=== PATIENT | male | born 1950 ===

== ENCOUNTER 2021-05-04 13:32 | Inpatient (IN) | payer MEDICARE, OTHER ==
[2021-05-04] MEDS ORDERED: Sodium Chloride 0.9% 10 ML Syringe FLUSH PRN ×2 (13:44→16:01)
--- NOTE | 2021-05-04 14:05 | EDM.PDOC ---
ED HPI GENERAL MEDICAL PROBLEM - General Chief Complaint: Cardiovascular Problem Stated Complaint: ABNORMAL EKG SENT BY RUPERT Time Seen by Provider: 05/04/21 13:44 Source of Information: Reports: Patient, Family (Ellyn, daughter was present on phone for history), RN Notes Reviewed History Limitations: Reports: No Limitations - History of Present Illness INITIAL COMMENTS - FREE TEXT/NARRATIVE: Patient is a 70-year-old male who presents to the ER for evaluation of a few different issues. Patient was evaluated earlier this morning at the [facility] by Kena Nash, and was found to have an irregular EKG, this revealed atrial flutter with a predominant 4-1 AV block. Patient states that he has been having some issues with shortness of breath, on exertion for the last 2 or 3 weeks. He notes that he has a lot of sinus drainage, and has been having a cough but nothing that is productive. Patient is not complaining of any chest pain or pressure, or shortness of breath at rest. Patient is complaining of increased fatigue with any sort of activity at all. Notes that his blood pressure a while back, has been in the 200s systolically, and blood pressure at the ER today has been 180 systolically. O2 sats are on the low side of normal at about 93% on room air. He is afebrile at 97.4 F, respiratory rate 18, and peripheral pulse at around 98 bpm. Patient states that he is a [id number] smoker at least, and has not had any cigarettes today. He does drink coffee as well. States that he has been on heart medications many years ago, but he did not think they were helping, and then they just got more expensive so he quit taking them. He is not had a primary care provider in 7 years and his last care provider was at the [facility]. - Related Data Allergies Allergy/AdvReac Type Severity Reaction Status Date / Time No Known Allergies Allergy Verified 05/04/21 13:44 Past Medical History HEENT History: Reports: Other (See Below) Other HEENT History: tunnel vision, night blindness Cardiovascular History: Reports: Heart Murmur (? aortic stenosis), SOB on Exertion Social & Family History - Tobacco Use Tobacco Use Status *Q: Current Every Day Tobacco User Tobacco Use Within Last Twelve Months: Cigarettes Years of Tobacco use: 50 Packs/Tins Daily: 1 Packs/Tins Daily Comment: last use 05/03/21 Second Hand Smoke Exposure: No - Caffeine Use Caffeine Use: Reports: Coffee - Recreational Drug Use Recreational Drug Use: No ED ROS GENERAL - Review of Systems Review Of Systems: Comprehensive ROS is negative, except as noted in HPI. ED EXAM, GENERAL - Physical Exam Exam: See Below Exam Limited By: No Limitations General Appearance: Alert, WD/WN, No Apparent Distress Respiratory/Chest: No Respiratory Distress, Lungs Clear, Normal Breath Sounds, No Accessory Muscle Use, Chest Non-Tender Cardiovascular: Normal Peripheral Pulses, Regular Rate, Rhythm, No Edema, Systolic Murmur (poss aortic stenosis type murmur) Peripheral Pulses: 2+: Radial (L), Radial (R) Extremities: Normal Inspection, Normal Capillary Refill Neurological: Alert, Oriented, Normal Cognition, No Motor/Sensory Deficits Psychiatric: Normal Affect, Normal Mood Skin Exam: Warm, Dry, Intact, Normal Color, No Rash, Other (several raised discolored areas; large one on left upper chest and 2 areas on back towards midline.) #1 Interpretation EKG Date: 05/04/21 Time: 13:44 Rhythm: A-Flutter (with 4:1 AV block) Rate (Beats/Min): 81 [place]: Normal P-Wave: Present QRS: Normal ST-T: Normal QT: Prolonged (QTc 524) Comparison: NA - No Prior EKG EKG Interpretation Comments: No obvious ischemia or acute ST changes noted, reviewed by myself and Dr. Titus. There is some left ventricular hypertrophy noted on the EKG as well. Course - Vital Signs Last Recorded V/S: Last Vital Signs Temp 97.4 F 05/04/21 13:42 Pulse 98 05/04/21 13:42 Resp 18 05/04/21 13:42 BP 186/80 H 05/04/21 13:42 Pulse Ox 93 L 05/04/21 13:42 - Orders/Labs/Meds Orders: Active Orders 24 hr Category Date Time Status EKG Documentation Completion [RC] STAT Care 05/04/21 13:44 Ordered Peripheral IV Care [RC] . DIRECTED Care 05/04/21 13:44 Ordered COVID-19/FLU A+B [MOLEC] Stat Lab 05/04/21 14:20 Ordered Sodium Chloride 0.9% [Saline Flush] Med 05/04/21 13:44 Ordered 10 ml FLUSH ASDIRECTED PRN Peripheral IV Insertion Adult [OM.PC] Stat Oth 05/04/21 13:44 Ordered Medication Orders Sodium Chloride (Sodium Chloride 0.9% 10 Ml Syringe) 10 ml FLUSH ASDIRECTED PRN PRN Reason: Keep Vein Open Last Admin: 05/04/21 13:43 Dose: 10 ml Documented by: CAROLINA Labs: Laboratory Tests 05/04/21 05/04/21 05/04/21 Range/Units 13:43 13:43 13:43 WBC 7.71 (4.23-9.07) K/mm3 RBC 4.88 (4.63-6.08) M/mm3 Hgb 15.2 (13.7-17.5) gm/dl Hct 45.7 (40.1-51.0) % MCV 93.6 H (79.0-92.2) fl MCH 31.1 (25.7-32.2) pg MCHC 33.3 (32.2-35.5) g/dl RDW Std Deviation 46.0 H (35.1-43.9) fL Plt Count 246 (163-337) K/mm3 MPV 9.7 (9.4-12.3) fl Neut % (Auto) 65.9 (34.0-67.9) % Lymph % (Auto) 19.1 L (21.8-53.1) % [place] % (Auto) 11.7 (5.3-12.2) % Eos % (Auto) 2.7 (0.8-7.0) Baso % (Auto) 0.5 (0.1-1.2) % Neut # (Auto) 5.08 (1.78-5.38) K/mm3 Lymph # (Auto) 1.47 (1.32-3.57) K/mm3 [place] # (Auto) 0.90 H (0.30-0.82) K/mm3 Eos # (Auto) 0.21 (0.04-0.54) K/mm3 Baso # (Auto) 0.04 (0.01-0.08) K/mm3 PT 11.5 (9.7-12.0) SECONDS INR 1.08 APTT 28.0 (21.7-31.4) SECONDS D-Dimer, Quantitative 0.85 H (0.19-0.50) mg/L Sodium 145 (136-145) mEq/L Potassium 3.8 (3.5-5.1) mEq/L Chloride 109 H (98-107) mEq/L Carbon Dioxide 25 (21-32) mEq/L Anion Gap 14.8 (5-15) BUN 21 H (7-18) mg/dL Creatinine 1.9 H (0.7-1.3) mg/dL Est Cr Clr Drug Dosing 39.63 mL/min Estimated GFR (MDRD) 35 (>60) mL/min BUN/Creatinine Ratio 11.1 L (14-18) Glucose 142 H (70-99) mg/dL Calcium 8.9 (8.5-10.1) mg/dL Magnesium 2.2 (1.8-2.4) mg/dL Total Bilirubin 0.7 (0.2-1.0) mg/dL AST 35 (15-37) U/L ALT 116 H (16-63) U/L Alkaline Phosphatase 85 (46-116) U/L Troponin I 0.062 H* (0.00-0.056) ng/mL NT-Pro-B Natriuret Pep (0-125) pg/mL Total Protein 7.3 (6.4-8.2) g/dl Albumin 3.6 (3.4-5.0) g/dl Globulin 3.7 gm/dL Albumin/Globulin Ratio 1.0 (1-2) 05/04/21 Range/Units 13:43 WBC (4.23-9.07) K/mm3 RBC (4.63-6.08) M/mm3 Hgb (13.7-17.5) gm/dl Hct (40.1-51.0) % MCV (79.0-92.2) fl MCH (25.7-32.2) pg MCHC (32.2-35.5) g/dl RDW Std Deviation (35.1-43.9) fL Plt Count (163-337) K/mm3 MPV (9.4-12.3) fl Neut % (Auto) (34.0-67.9) % Lymph % (Auto) (21.8-53.1) % [place] % (Auto) (5.3-12.2) % Eos % (Auto) (0.8-7.0) Baso % (Auto) (0.1-1.2) % Neut # (Auto) (1.78-5.38) K/mm3 Lymph # (Auto) (1.32-3.57) K/mm3 [place] # (Auto) (0.30-0.82) K/mm3 Eos # (Auto) (0.04-0.54) K/mm3 Baso # (Auto) (0.01-0.08) K/mm3 PT (9.7-12.0) SECONDS INR APTT (21.7-31.4) SECONDS D-Dimer, Quantitative (0.19-0.50) mg/L Sodium (136-145) mEq/L Potassium (3.5-5.1) mEq/L Chloride (98-107) mEq/L Carbon Dioxide (21-32) mEq/L Anion Gap (5-15) BUN (7-18) mg/dL Creatinine (0.7-1.3) mg/dL Est Cr Clr Drug Dosing mL/min Estimated GFR (MDRD) (>60) mL/min BUN/Creatinine Ratio (14-18) Glucose (70-99) mg/dL Calcium (8.5-10.1) mg/dL Magnesium (1.8-2.4) mg/dL Total Bilirubin (0.2-1.0) mg/dL AST (15-37) U/L ALT (16-63) U/L Alkaline Phosphatase (46-116) U/L Troponin I (0.00-0.056) ng/mL NT-Pro-B Natriuret Pep 00051 H (0-125) pg/mL Total Protein (6.4-8.2) g/dl Albumin (3.4-5.0) g/dl Globulin gm/dL Albumin/Globulin Ratio (1-2) Meds: Medications Generic Name Dose Route Start Last Admin Trade Name Freq PRN Reason Stop Dose Admin Sodium Chloride 10 ml 05/04/21 13:44 05/04/21 13:43 Sodium Chloride 0.9% 10 Ml Syringe FLUSH 10 ml ASDIRECTED PRN Administration Keep Vein Open Discontinued Medications Generic Name Dose Route Start Last Admin Trade Name Freq PRN Reason Stop Dose Admin Aspirin 324 mg 05/04/21 14:35 05/04/21 15:00 Aspirin 81 Mg Tab.Chew PO 05/04/21 14:36 324 mg ONETIME ONE Administration - Re-Assessments/Exams Free Text/Narrative Re-Assessment/Exam: 05/04/21 14:11 Patient presents to the ER via direction from Kena Nash from the [facility] for his general complaints. EKG does still demonstrate the atrial flutter with a 4-1 block, we will get some labs for further evaluation and management. 05/04/21 14:17 Official radiology read demonstrates a heart that is mildly enlarged, and findings compatible with CHF. 05/04/21 15:22 Laboratory evaluation has resulted, CBC is unremarkable, CMP is impressive for creatinine elevated at 1.9 and GFR 39, D-dimer is elevated at 0.85, troponin is slightly elevated at 0.062, and his BNP is markedly elevated at 16,206. At this point in time I have called over to [facility] in [place] and will discuss his case with Dr. Castillo, I do believe the patient would benefit from hospitalization for echo, and further cardiac work-up. Patient did refuse Covid screen. 05/04/21 15:27 Dr. Castillo did think it would be reasonable to admit the patient for echo, and to diurese him in this hospital if our hospitalist felt comfortable, I will discuss the case with Dr. Loja at this time. 05/04/21 15:34 Dr. Loja will accept the patient for inpatient management, he will go to evaluate the patient and render care. Departure - Departure Time of Disposition: 15:36 Disposition: Admitted As Inpatient 68 Condition: Good Clinical Impression: Acute exacerbation of CHF (congestive heart failure) Qualifiers: Heart failure type: unspecified Qualified Code(s): I50.9 - Heart failure, unspecified Referrals: Kena Nash, PHOTOENGRAVING APPRENTICE [Primary Care Provider] - Forms: ED Department Discharge Sepsis Event Note (ED) - Evaluation Sepsis Screening Result: No Definite Risk - Focused Exam Vital Signs: Vital Signs Temp Pulse Resp BP Pulse Ox 05/04/21 13:42 97.4 F 98 18 186/80 H 93 L - My Orders Last 24 Hours: My Active Orders 05/04/21 13:44 EKG Documentation Completion [RC] STAT Peripheral IV Care [RC] . DIRECTED Sodium Chloride 0.9% [Saline Flush] 10 ml FLUSH ASDIRECTED PRN Peripheral IV Insertion Adult [OM.PC] Stat 05/04/21 14:20 COVID-19/FLU A+B [MOLEC] Stat - Assessment/Plan Last 24 Hours: My Active Orders 05/04/21 13:44 EKG Documentation Completion [RC] STAT Peripheral IV Care [RC] . DIRECTED Sodium Chloride 0.9% [Saline Flush] 10 ml FLUSH ASDIRECTED PRN Peripheral IV Insertion Adult [OM.PC] Stat 05/04/21 14:20 COVID-19/FLU A+B [MOLEC] Stat
--- NOTE | 2021-05-04 14:11 | CR ---
Chest: Portable view of the chest was obtained. Comparison: No prior chest imaging is available. Heart size is mildly enlarged. Upper mediastinum is normal. Pulmonary vessels are diffusely congested. Bony structures show nothing acute. Impression: 1. Findings are compatible with CHF. Diagnostic code #3
[2021-05-04] MEDS ORDERED: Aspirin 81 MG Tab.Chew PO ONE (14:35)
[2021-05-04] MEDS ORDERED: Ondansetron 4 MG Tab.DIS PO PRN (16:01)
[2021-05-04] MEDS ORDERED: Ondansetron 4 MG/2 ML SDV IV PRN (16:01)
[2021-05-04] MEDS ORDERED: Docusate Sodium 100 MG Cap PO PRN (16:01)
[2021-05-04] MEDS ORDERED: Polyethylene Glycol 3350 Powder 17 GM Packet PO PRN (16:01)
[2021-05-04] MEDS ORDERED: Acetaminophen 325 MG Tab PO PRN (16:01)
[2021-05-04] MEDS ORDERED: hydrALAZINE 20 MG/ML SDV IVPUSH PRN (16:04)
--- NOTE | 2021-05-04 16:15 | PCM.HP.2 ---
H&P History of Present Illness - General Date of Service: 05/04/21 Admit Problem/Dx: Admission Diagnosis/Problem Admission Diagnosis/Problem Atrial flutter Source of Information: Patient, Provider - History of Present Illness Initial Comments - Free Text/Narative: Patient is a 70-year-old male with a past medical history as listed below who presents to the [facility] emergency department due to a chief complaint of shortness of breath, and fatigue with activity. Patient states that he was in his usual state of health up until about 3 weeks ago when he started noticing that taking a walk to his pickup truck and [place] more tiring than usual. He has not been feeling any lightheadedness or dizziness, but he has felt short of breath with long distances. As time has gone on the amount of activity he has been able to do has lessened. He denies any chest pain, chest pressure or pleurisy. Denies any abdominal complaints other than bloating at times. He denies any abdominal pain or nausea/vomiting. Denies any lower extremity edema. He states he has a history of an aortic valve problem and hypertension. He used to be on cardiac medications which included metoprolol and Norvasc. He self discontinued his medications a long time ago. He has not seen a physician in quite some time. As he knew he had a history of significant hypertension and continuing to feel the way he did, he decided to present to the emergency department for evaluation. Immediately, the patient was noted to be in new atrial flutter. Laboratory studies were notable for mildly increased troponin of equivocal value, which was likely attributed to being in atrial flutter. BNP was noted to be 16,000. Patient did not endorse a history of heart failure. Chest x-ray was notable for some pulmonary edema. He was not hypoxic. In addition, it was noted that he had a slightly elevated D-dimer however imaging could not be pursued due to his decreased renal function. Patient was referred to the internal medicine service for further management and work-up. A conversation was had between ER personnel and cardiology. They felt as if his troponin was due to a leak in the setting of atrial flutter and likely rapid ventricular response. They felt it safe that he could be admitted here. Patient at current time does not endorse any new specific complaints. CODE STATUS reviewed and he wishes to be DNR/DNI. 14 point review of systems was reviewed with the patient entirely and only pertinent for the above information. - Related Data Allergies/Adverse Reactions: Allergies Allergy/AdvReac Type Severity Reaction Status Date / Time No Known Allergies Allergy Verified 05/04/21 13:44 Past Medical History HEENT History: Reports: Other (See Below) Other HEENT History: tunnel vision, night blindness Cardiovascular History: Reports: Heart Murmur (? aortic stenosis), SOB on Exertion Other Cardiovascular History: "aortic valve fluttering" Social & Family History - Tobacco Use Tobacco Use Status *Q: Current Every Day Tobacco User Years of Tobacco use: 50 Packs/Tins Daily: 1 Second Hand Smoke Exposure: No - Caffeine Use Caffeine Use: Reports: Coffee - Recreational Drug Use Recreational Drug Use: No H&P Review of Systems - Review of Systems: Review Of Systems: Comprehensive ROS is negative, except as noted in HPI. Exam - Exam Exam: See Below - Vital Signs Vital Signs: Last Vital Signs Temp 97.4 F 05/04/21 13:42 Pulse 98 05/04/21 13:42 Resp 18 05/04/21 13:42 BP 186/80 H 05/04/21 13:42 Pulse Ox 93 L 05/04/21 13:42 Weight: 223 lb 11.2 oz - Exam Physical Exam Comments:: General: Awake and alert, in no apparent distress. Nontoxic-appearing. HEENT: Normocephalic, atraumatic. Extra ocular muscles intact. Pupils equal and reactive to light. Nares are patent. Oropharynx clear without erythema or exudate. Tongue is midline. Neck: Supple without lymphadenopathy. No goiter. Trachea midline. Heart: Irregular rate and rhythm on the monitor consistent with atrial flutter. S1 and S2 heard with systolic murmur. No extrasystoles. Lungs: Decreased breath sounds at bases with mild rales in the right lower. Abdomen: Rotund abdomen. Soft, nontender, nondistended. Positive bowel sounds. No CVA tenderness. No suprapubic tenderness. Extremities: Warm and perfused. No clubbing, cyanosis, or edema. Integument: No obvious rash or jaundice. No lymphadenopathy. Neurologic: Cranial nerves II through XII grossly intact. No obvious gross motor or sensory deficits. Psychiatric: Normal mood and affect. - Patient Data Lab Results Last 24 hrs: Laboratory Results - last 24 hr 05/04/21 05/04/21 05/04/21 Range/Units 13:43 13:43 13:43 WBC 7.71 (4.23-9.07) K/mm3 RBC 4.88 (4.63-6.08) M/mm3 Hgb 15.2 (13.7-17.5) gm/dl Hct 45.7 (40.1-51.0) % MCV 93.6 H (79.0-92.2) fl MCH 31.1 (25.7-32.2) pg MCHC 33.3 (32.2-35.5) g/dl RDW Std Deviation 46.0 H (35.1-43.9) fL Plt Count 246 (163-337) K/mm3 MPV 9.7 (9.4-12.3) fl Neut % (Auto) 65.9 (34.0-67.9) % Lymph % (Auto) 19.1 L (21.8-53.1) % [place] % (Auto) 11.7 (5.3-12.2) % Eos % (Auto) 2.7 (0.8-7.0) Baso % (Auto) 0.5 (0.1-1.2) % Neut # (Auto) 5.08 (1.78-5.38) K/mm3 Lymph # (Auto) 1.47 (1.32-3.57) K/mm3 [place] # (Auto) 0.90 H (0.30-0.82) K/mm3 Eos # (Auto) 0.21 (0.04-0.54) K/mm3 Baso # (Auto) 0.04 (0.01-0.08) K/mm3 PT 11.5 (9.7-12.0) SECONDS INR 1.08 APTT 28.0 (21.7-31.4) SECONDS D-Dimer, Quantitative 0.85 H (0.19-0.50) mg/L Sodium 145 (136-145) mEq/L Potassium 3.8 (3.5-5.1) mEq/L Chloride 109 H (98-107) mEq/L Carbon Dioxide 25 (21-32) mEq/L Anion Gap 14.8 (5-15) BUN 21 H (7-18) mg/dL Creatinine 1.9 H (0.7-1.3) mg/dL Est Cr Clr Drug Dosing 39.63 mL/min Estimated GFR (MDRD) 35 (>60) mL/min BUN/Creatinine Ratio 11.1 L (14-18) Glucose 142 H (70-99) mg/dL Calcium 8.9 (8.5-10.1) mg/dL Magnesium 2.2 (1.8-2.4) mg/dL Total Bilirubin 0.7 (0.2-1.0) mg/dL AST 35 (15-37) U/L ALT 116 H (16-63) U/L Alkaline Phosphatase 85 (46-116) U/L Troponin I 0.062 H* (0.00-0.056) ng/mL NT-Pro-B Natriuret Pep (0-125) pg/mL Total Protein 7.3 (6.4-8.2) g/dl Albumin 3.6 (3.4-5.0) g/dl Globulin 3.7 gm/dL Albumin/Globulin Ratio 1.0 (1-2) // Range/Units 13:43 WBC (4.23-9.07) K/mm3 RBC (4.63-6.08) M/mm3 Hgb (13.7-17.5) gm/dl Hct (40.1-51.0) % MCV (79.0-92.2) fl MCH (25.7-32.2) pg MCHC (32.2-35.5) g/dl RDW Std Deviation (35.1-43.9) fL Plt Count (163-337) K/mm3 MPV (9.4-12.3) fl Neut % (Auto) (34.0-67.9) % Lymph % (Auto) (21.8-53.1) % [place] % (Auto) (5.3-12.2) % Eos % (Auto) (0.8-7.0) Baso % (Auto) (0.1-1.2) % Neut # (Auto) (1.78-5.38) K/mm3 Lymph # (Auto) (1.32-3.57) K/mm3 [place] # (Auto) (0.30-0.82) K/mm3 Eos # (Auto) (0.04-0.54) K/mm3 Baso # (Auto) (0.01-0.08) K/mm3 PT (9.7-12.0) SECONDS INR APTT (21.7-31.4) SECONDS D-Dimer, Quantitative (0.19-0.50) mg/L Sodium (136-145) mEq/L Potassium (3.5-5.1) mEq/L Chloride (98-107) mEq/L Carbon Dioxide (21-32) mEq/L Anion Gap (5-15) BUN (7-18) mg/dL Creatinine (0.7-1.3) mg/dL Est Cr Clr Drug Dosing mL/min Estimated GFR (MDRD) (>60) mL/min BUN/Creatinine Ratio (14-18) Glucose (70-99) mg/dL Calcium (8.5-10.1) mg/dL Magnesium (1.8-2.4) mg/dL Total Bilirubin (0.2-1.0) mg/dL AST (15-37) U/L ALT (16-63) U/L Alkaline Phosphatase (46-116) U/L Troponin I (0.00-0.056) ng/mL NT-Pro-B Natriuret Pep 48658 H (0-125) pg/mL Total Protein (6.4-8.2) g/dl Albumin (3.4-5.0) g/dl Globulin gm/dL Albumin/Globulin Ratio (1-2) Result Diagrams: 05/04/21 13:43 05/04/21 13:43 Imaging Impressions Last 24 hrs: Imaging personally reviewed. Pulmonary vascular congestion noted. No dense effusions or infiltrates. No bony abnormalities. Positive for cardiomegaly. #1 Interpretation EKG Date: 05/04/21 Time: 16:00 Rhythm: A-Flutter Rate (Beats/Min): 80 P-Wave: Absent ST-T: Normal Sepsis Event Note - Evaluation Sepsis Screening Result: No Definite Risk - Focused Exam Vital Signs: Vital Signs Temp Pulse Resp BP Pulse Ox 05/04/21 13:42 97.4 F 98 18 186/80 H 93 L Problem List Initiated/Reviewed/Updated: Yes Orders Last 24hrs: Active Orders 24 hr Category Date Time Status Patient Status [ADT] Routine ADT 05/04/21 15:58 Active Cardiac Monitoring [RC] CONTINUOUS Care 05/04/21 15:59 Active EKG Documentation Completion [RC] STAT Care 05/04/21 13:44 Active Oxygen Therapy [RC] PRN Care 05/04/21 15:58 Active Peripheral IV Care [RC] . DIRECTED Care 05/04/21 13:44 Active Pulse Oximetry [RC] PRN Care 05/04/21 15:59 Active Up ad Kathleen [RC] ASDIRECTED Care 05/04/21 15:58 Active VTE/DVT Education [RC] PER UNIT ROUTINE Care 05/04/21 15:58 Active Vital Signs [RC] Q4H Care 05/04/21 15:58 Active 2 Gram Sodium Diet [DIET] Diet 05/04/21 Dinner Ordered Heart Healthy Diet [DIET] Diet 05/04/21 Dinner Ordered Echo 2D wo Cont [US] Stat Exams 05/04/21 16:05 Ordered BASIC METABOLIC PANEL,BMP [CHEM] AM Lab 05/05/21 05:11 Ordered CBC WITH AUTO DIFF [HEME] AM Lab 05/05/21 05:11 Ordered COVID-19/FLU A+B [MOLEC] Stat Lab 05/04/21 15:45 Received TROPONIN I [CHEM] AM Lab 05/05/21 05:11 Ordered Acetaminophen [TylenoL] Med 05/04/21 16:01 Ordered 650 mg PO Q4H PRN Docusate Sodium [Colace] Med 05/04/21 16:01 Ordered 100 mg PO BID PRN Metoprolol Tartrate [Lopressor] Med 05/04/21 16:15 Ordered 25 mg PO Q12H Ondansetron [Zofran ODT] Med 05/04/21 16:01 Ordered 4 mg PO Q4H PRN Ondansetron [Zofran] Med 05/04/21 16:01 Ordered 4 mg IV Q4H PRN Rivaroxaban [Xarelto] Med 05/04/21 17:00 Ordered 15 mg PO WITHDINNER Sodium Chloride 0.9% [Saline Flush] Med 05/04/21 13:44 Active 10 ml FLUSH ASDIRECTED PRN Sodium Chloride 0.9% [Saline Flush] Med 05/04/21 16:01 Ordered 10 ml FLUSH ASDIRECTED PRN amLODIPine [Norvasc] Med 05/04/21 16:15 Ordered 5 mg PO DAILY hydrALAZINE [Apresoline] Med 05/04/21 16:04 Ordered 10 mg IVPUSH Q4H PRN polyethylene glycoL 3350 [MiraLAX] Med 05/04/21 16:01 Ordered 17 gm PO DAILY PRN Peripheral IV Insertion Adult [OM.PC] Stat Oth 05/04/21 13:44 Ordered Saline Lock Insert [OM.PC] Routine Oth 05/04/21 16:01 Ordered Resuscitation Status Routine Resus Stat 05/04/21 15:58 Ordered Medication Orders Acetaminophen (Acetaminophen 325 Mg Tab) 650 mg PO Q4H PRN PRN Reason: Pain (Mild 1-3)/fever Amlodipine Besylate (Amlodipine 5 Mg Tab) 5 mg PO DAILY JOANA Docusate Sodium (Docusate Sodium 100 Mg Cap) 100 mg PO BID PRN PRN Reason: Constipation Hydralazine HCl (Hydralazine 20 Mg/Ml Sdv) 10 mg IVPUSH Q4H PRN PRN Reason: Hypertension Metoprolol Tartrate (Metoprolol Tartrate 25 Mg Tab) 25 mg PO Q12H JOANA Ondansetron HCl (Ondansetron 4 Mg Tab.Dis) 4 mg PO Q4H PRN PRN Reason: nausea, able to take PO Ondansetron HCl (Ondansetron 4 Mg/2 Ml Sdv) 4 mg IV Q4H PRN PRN Reason: Nausea/Vomiting Polyethylene Glycol (Polyethylene Glycol 3350 Powder 17 Gm Packet) 17 gm PO DAILY PRN PRN Reason: Constipation Rivaroxaban (Rivaroxaban 15 Mg Tab) 15 mg PO WITHRICHARD BERNARD Sodium Chloride (Sodium Chloride 0.9% 10 Ml Syringe) 10 ml FLUSH ASDIRECTED PRN PRN Reason: Keep Vein Open Last Admin: 05/04/21 13:43 Dose: 10 ml Documented by: CAROLINA Sodium Chloride (Sodium Chloride 0.9% 10 Ml Syringe) 10 ml FLUSH ASDIRECTED PRN PRN Reason: Keep Vein Open Assessment/Plan Comment:: 70-year-old male with a past medical history as listed above who presents to the [facility] emergency department with a chief complaint of shortness of breath and fatigue with physical activity. 1. New diagnosis of atrial flutter. Admit to the hospitalist service for further work-up and management. Initiate low-dose beta-saba. Risks and benefits regarding systemic anticoagulation were discussed with the patient in full including those specific to agents; Coumadin, Xarelto and Eliquis. After an informed discussion, the patient has opted for Xarelto therapy. Will renally dose. We will monitor on telemetry. Echocardiogram ordered. Rate controlled at rest. 2. Pulmonary vascular congestion. Consistent with CHF; otherwise unspecified at current time. Echocardiogram pending. Will initiate diuresis, daily weights by standing scale. 2 g sodium diet. 3. CKD stage III. Nearing CKD stage IV. Avoid nephrotoxins. Intermittent check of labs with electrolyte replacement as necessary. 4. Increased troponin which is equivocal. Likely secondary to atrial fibrillation/flutter likely with RVR over the past 3 weeks. Will check troponin in the morning. In any event the patient is going to be placed on beta-saba and systemic anticoagulation. No acute evidence to suggest ACS. 5. Increased D-dimer. CT examination of the chest without contrast is pending to rule out large central lesion. In any event, the patient will be placed on systemic anticoagulation with Xarelto. 6. Hypertension. Initiate metoprolol and Norvasc. Hydralazine as needed if sustaining 180 mmHg systolic. 7. Active smoker. Nicotine patch as needed. CODE STATUS: DNR/DNI. DVT prophylaxis: Systemic anticoagulation with Xarelto.
[2021-05-04 16:25] LABS: CORONAVIRUS COVID-19 NAA NEGATIVE (NEGATIVE)
[2021-05-04] MEDS ORDERED: Rivaroxaban 15 MG Tab PO SCH (17:00)
[2021-05-04] MEDS: Metoprolol Tartrate 25 MG Tab PO SCH (17:39)
[2021-05-04] MEDS: amLODIPine 5 MG Tab PO SCH (17:39)
--- NOTE | 2021-05-04 19:55 | CT ---
Addendum: In reviewing this report with Dr. West on 05/26/21, 10:07 MDT, a follow-up CT chest study is recommended in six months to evaluate the mediastinal lymph nodes and the pulmonary nodules. This six-month follow-up would occur in October,. --- Addendum1 above dictated on [05/26/2021 10:11] by [Harmeet Morin, Chaparro Alvarenga] --- --- Addendum1 above signed on [05/26/2021 10:19] by [Harmeet Morin, Chaparro Alvarenga] --- --- Original report below dictated on [05/04/2021 19:40] by [Harmeet Morin, Chaparro Alvarenga] --- --- Original report below signed on [05/04/2021 19:52] by [Harmeet Morin, Chaparro Alvarenga] --- CT chest Technique: Multiple axial sections through the chest were obtained. Intravenous contrast was not utilized. Reconstructed coronal and sagittal images were obtained. Comparison: Chest radiograph performed earlier on the same day, no prior CT study of the chest. Findings: Thoracic aorta shows mild atherosclerotic change. No aneurysm is seen. Slightly prominent lymph nodes are seen within the mediastinum. Largest lymph node measures approximately 2.0 cm. Prominent coronary artery calcification is seen. Heart is slightly enlarged. No pericardial thickening is seen. Calcification is seen within the aortic annulus. Cyst is noted within the left lobe of the liver measuring 1.3 cm. Both adrenal glands are prominent in size and show low density presumably due to small adrenal adenomas. Small calcifications are seen within the uncinate process of the pancreas most likely relating to old pancreatitis. No additional upper abdominal abnormality is seen. Moderate sized right-sided pleural effusion is seen. Multiple small pulmonary nodules are seen within both sides of the chest. These do not appear calcified and measure less than 1 cm. Bone window settings were reviewed which show scattered disc space narrowing and endplate spurring throughout the spine with areas of vacuum disc phenomena. No acute osseous finding is seen. Impression: 1. Small right-sided pleural effusion. 2. Multiple small pulmonary nodules on both sides of the chest which are noncalcified. Differential includes noncalcified granulomatous process, metastatic disease or inflammatory change causing these nodules. 3. Fatty areas within both adrenal glands most likely representing adrenal adenomas. 4. Slightly prominent lymph nodes within the mediastinum. 5. Other findings as noted above which are nonacute. Diagnostic code #9 I agree with preliminary report from [facility], finalized on 01/02/21, 6:35 PM CDT, code 1 --- Addendum1 signed ---
[2021-05-04] MEDS: Furosemide 40 MG/4 ML VIAL IVPUSH SCH (20:01)
[2021-05-05] MEDS: Metoprolol Tartrate 25 MG Tab PO SCH (03:24)
[2021-05-05] MEDS: Furosemide 40 MG/4 ML VIAL IVPUSH SCH (06:39)
[2021-05-05] MEDS: amLODIPine 5 MG Tab PO SCH ×2 (07:52→08:00)
[2021-05-05] MEDS ORDERED: REMOVE TRDERM SCH (09:00)
[2021-05-05] MEDS ORDERED: Nicotine 21 MG/24 Hr Patch TRDERM SCH (09:00)
[2021-05-05] MEDS ORDERED: [UNRECOGNIZED DRUG - OTHER] TRDERM SCH (09:00)
--- NOTE | 2021-05-05 09:08 | PCM.DCSUM1 ---
Discharge Summary - Hospital Course Free Text/Narrative:: 70-year-old male with a past medical history as listed above who presents to the [facility] emergency department with a chief complaint of shortness of breath and fatigue with physical activity. 1. New diagnosis of atrial flutter. Admitted to the hospitalist service for further work-up and management. Initiated low-dose beta-saba. 25 mg of p.o. metoprolol twice daily. Risks and benefits regarding systemic anticoagulation were discussed with the p atient in full including those specific to agents; Coumadin, Xarelto and Eliquis. After an informed discussion, the patient has opted for Xarelto therapy. Will renally dose 15 mg daily. Ambulation trial only notable for mild tachycardia after 200 feet of ambulation. Highest pulse was 105 bpm which was asymptomatic on alex agent. Echocardiogram notable for new systolic heart failure with ejection fraction 30 to 35%. No significant valvular abnormalities. Rate controlled at rest. 2. New diagnosis of chronic diastolic congestive heart failure. Confirmed by echocardiogram. Patient placed on daily Lasix 20 mg daily. Noted mild pleural effusion at time of admission. Patient not hypoxic and feeling well after significant amount of ambulation without assistance. Patient placed on PHILIPPE inhibitor as well as beta-blockade. Will need referral to cardiology on an outpatient basis. Follow-up with PCP within 1 to 2 weeks time. 3. CKD stage III. Nearing CKD stage IV. Avoid nephrotoxins. Intermittent check of labs with electrolyte replacement as necessary. 4. Increased troponin which is equivocal. Likely secondary to atrial fibrillation/flutter likely with RVR over the past 3 weeks. Both troponins checked were 0.06. Laboratory studies were within 12 to 18 hours apart. Patient placed on alex agent, lisinopril, systemic anticoagulation at time of admission. No acute evidence to suggest ACS. 5. Increased D-dimer. CT examination of the chest without contrast (due to renal insufficiency) negative for large central lesion. No obvious other identifiable pulmonary emboli. 6. Hypertension. Initiated metoprolol and lisinopril. Hydralazine as needed if sustaining 180 mmHg systolic. 7. Active smoker. Nicotine patch as needed. 8. Multiple pulmonary nodules with mild mediastinal lymphadenopathy. Patient will need to follow-up with his PCP regarding further work-up. Recommend PET scanning. Smoking cessation education given. CODE STATUS: DNR/DNI. DVT prophylaxis: Systemic anticoagulation with Xarelto. HPI Initial Comments: Initial Comments - Free Text/Narative: Patient is a 70-year-old male with a past medical history as listed below who presents to the [facility] emergency department due to a chief complaint of shortness of breath, and fatigue with activity. Patient states that he was in his usual state of health up until about 3 weeks ago when he started noticing that taking a walk to his pickup truck and [place] more t[place] than usual. He has not been feeling any lightheadedness or dizziness, but he has felt short of breath with long distances. As time has gone on the amount of activity he has been able to do has lessened. He denies any chest pain, chest pressure or pleurisy. Denies any abdominal complaints other than bloating at times. He denies any abdominal pain or nausea/vomiting. Denies any lower extremity edema. He states he has a history of an aortic valve problem and hypertension. He used to be on cardiac medications which included metoprolol and Norvasc. He self discontinued his medications a long time ago. He has not seen a physician in quite some time. As he knew he had a history of significant hypertension and continuing to feel the way he did, he decided to present to the emergency department for evaluation. Immediately, the patient was noted to be in new atrial flutter. Laboratory studies were notable for mildly increased troponin of equivocal value, which was likely attributed to being in atrial flutter. BNP was noted to be 16,000. Patient did not endorse a history of heart failure. Chest x-ray was notable for some pulmonary edema. He was not hypoxic. In addition, it was noted that he had a slightly elevated D-dimer however imaging could not be pursued due to his decreased renal function. Patient was referred to the internal medicine service for further management and work-up. A conversation was had between ER personnel and cardiology. They felt as if his troponin was due to a leak in the setting of atrial flutter and likely rapid ventricular response. They felt it safe that he could be admitted here. Patient at current time does not endorse any new specific complaints. CODE STATUS reviewed and he wishes to be DNR/DNI. 14 point review of systems was reviewed with the patient entirely and only pertinent for the above information. - Related Data Allergies/Adverse Reactions: Allergies Allergy/AdvReac Type Severity Reaction Status Date / Time No Known Allergies Allergy Verified 05/04/21 13:44 Past Medical History HEENT History: Reports: Other (See Below) Other HEENT History: tunnel vision, night blindness Cardiovascular History: Reports: Heart Murmur (? aortic stenosis), SOB on Exertion Other Cardiovascular History: "aortic valve fluttering" Social & Family History - Tobacco Use Tobacco Use Status *Q: Current Every Day Tobacco User Years of Tobacco use: 50 Packs/Tins Daily: 1 Second Hand Smoke Exposure: No - Caffeine Use Caffeine Use: Reports: Coffee - Recreational Drug Use Recreational Drug Use: No H&P Review of Systems - Review of Systems: Review Of Systems: Comprehensive ROS is negative, except as noted in HPI. Exam - Exam Exam: See Below - Vital Signs Vital Signs: Last Vital Signs Temp 97.4 F 05/04/21 13:42 Pulse 98 05/04/21 13:42 Resp 18 05/04/21 13:42 BP 186/80 H 05/04/21 13:42 Pulse Ox 93 L 05/04/21 13:42 Weight: 223 lb 11.2 oz - Exam Physical Exam Comments:: General: Awake and alert, in no apparent distress. Nontoxic-appearing. HEENT: Normocephalic, atraumatic. Extra ocular muscles intact. Pupils equal and reactive to light. Nares are patent. Oropharynx clear without erythema or exudate. Tongue is midline. Neck: Supple without lymphadenopathy. No goiter. Trachea midline. Heart: Irregular rate and rhythm on the monitor consistent with atrial flutter. S1 and S2 heard with systolic murmur. No extrasystoles. Lungs: Decreased breath sounds at bases with mild rales in the right lower. Abdomen: Rotund abdomen. Soft, nontender, nondistended. Positive bowel sounds. No CVA tenderness. No suprapubic tenderness. Extremities: Warm and perfused. No clubbing, cyanosis, or edema. Integument: No obvious rash or jaundice. No lymphadenopathy. Neurologic: Cranial nerves II through XII grossly intact. No obvious gross motor or sensory deficits. Psychiatric: Normal mood and affect. - Discharge Data Discharge Date: 05/05/21 Discharge Disposition: Home, Self-Care 01 Condition: Good - Referral to Home Health Primary Care Physician: PCP None - Patient Instructions Other/Special Instructions: Activity and diet are as tolerated. Limit sodium, caffeine, nicotine. Would recommend smoking cessation. Continue taking medications as listed in the discharge packet. Prescriptions have been provided. Follow-up with PCP within 1 to 2 weeks time. Echocardiography results are pending at time of discharge. Be mindful of any bleeding as it will take longer to stop as you are on systemic anticoagulation with Xarelto. If you sustain any significant trauma please report to emergency department for an immediate evaluation. Patient will need follow-up regarding multiple pulmonary nodules and slightly increased mediastinal lymphadenopathy. Recommend PET scanning. If you experience any signs or symptoms that warranted this admission please do not hesitate to call your primary care physician or present to an emergency department for an immediate evaluation. - Discharge Plan *PRESCRIPTION DRUG MONITORING PROGRAM REVIEWED*: Not Applicable *COPY OF PRESCRIPTION DRUG MONITORING REPORT IN PATIENT ALBERT: Not Applicable Prescriptions/Med Rec: Furosemide [Lasix] 20 mg PO DAILY #30 tab lisinopriL [Lisinopril] 10 mg PO DAILY #30 tablet Metoprolol Tartrate [Lopressor] 25 mg PO Q12H #60 tablet Rivaroxaban [Xarelto] 15 mg PO WITHDINNER #30 tablet Home Medications: Home Meds Furosemide [Lasix] 20 mg PO DAILY #30 tab 05/05/21 [Rx] Metoprolol Tartrate [Lopressor] 25 mg PO Q12H #60 tablet 05/05/21 [Rx] Rivaroxaban [Xarelto] 15 mg PO WITHDINNER #30 tablet 05/05/21 [Rx] lisinopriL [Lisinopril] 10 mg PO DAILY #30 tablet 05/05/21 [Rx] Patient Handouts: Heart Failure, Self Care, [id number], Living With Heart Failure, Steps to Quit Smoking Referrals: Kena Nash NP [Nurse Practitioner] - 05/12/21 10:00 am (This appointment is at the [facility].) - Discharge Summary/Plan Comment DC Time >30 min.: Yes - General Info Date of Service: 05/05/21 Admission Dx/Problem (Free Text: Admission Diagnosis/Problem Admission Diagnosis/Problem Atrial flutter Subjective Update: No acute events overnight. No new nursing concerns. No telemetry alarms. Patient has remained in rate controlled atrial flutter. Patient does not endorse any new complaints today at time of discharge. - Patient Data Vitals - Most Recent: Last Vital Signs Temp 98.1 F 05/05/21 07:35 Pulse 74 05/05/21 07:50 Resp 14 05/05/21 07:35 BP 134/77 05/05/21 07:52 Pulse Ox 96 05/05/21 07:50 Weight - Most Recent: 213 lb 1.6 oz I&O - Last 24 hours: Intake & Output 05/04/21 05/05/21 05/05/21 22:59 06:59 14:59 Intake Total 250 Output Total 2100 Balance -1850 Lab Results - Last 24 hrs: Laboratory Results - last 24 hr 05/04/21 05/04/21 05/04/21 Range/Units 13:43 13:43 13:43 WBC 7.71 (4.23-9.07) K/mm3 RBC 4.88 (4.63-6.08) M/mm3 Hgb 15.2 (13.7-17.5) gm/dl Hct 45.7 (40.1-51.0) % MCV 93.6 H (79.0-92.2) fl MCH 31.1 (25.7-32.2) pg MCHC 33.3 (32.2-35.5) g/dl RDW Std Deviation 46.0 H (35.1-43.9) fL Plt Count 246 (163-337) K/mm3 MPV 9.7 (9.4-12.3) fl Neut % (Auto) 65.9 (34.0-67.9) % Lymph % (Auto) 19.1 L (21.8-53.1) % [place] % (Auto) 11.7 (5.3-12.2) % Eos % (Auto) 2.7 (0.8-7.0) Baso % (Auto) 0.5 (0.1-1.2) % Neut # (Auto) 5.08 (1.78-5.38) K/mm3 Lymph # (Auto) 1.47 (1.32-3.57) K/mm3 [place] # (Auto) 0.90 H (0.30-0.82) K/mm3 Eos # (Auto) 0.21 (0.04-0.54) K/mm3 Baso # (Auto) 0.04 (0.01-0.08) K/mm3 PT 11.5 (9.7-12.0) SECONDS INR 1.08 APTT 28.0 (21.7-31.4) SECONDS D-Dimer, Quantitative 0.85 H (0.19-0.50) mg/L Sodium 145 (136-145) mEq/L Potassium 3.8 (3.5-5.1) mEq/L Chloride 109 H (98-107) mEq/L Carbon Dioxide 25 (21-32) mEq/L Anion Gap 14.8 (5-15) BUN 21 H (7-18) mg/dL Creatinine 1.9 H (0.7-1.3) mg/dL Est Cr Clr Drug Dosing 39.63 mL/min Estimated GFR (MDRD) 35 (>60) mL/min BUN/Creatinine Ratio 11.1 L (14-18) Glucose 142 H (70-99) mg/dL Calcium 8.9 (8.5-10.1) mg/dL Magnesium 2.2 (1.8-2.4) mg/dL Total Bilirubin 0.7 (0.2-1.0) mg/dL AST 35 (15-37) U/L ALT 116 H (16-63) U/L Alkaline Phosphatase 85 (46-116) U/L Troponin I 0.062 H* (0.00-0.056) ng/mL NT-Pro-B Natriuret Pep (0-125) pg/mL Total Protein 7.3 (6.4-8.2) g/dl Albumin 3.6 (3.4-5.0) g/dl Globulin 3.7 gm/dL Albumin/Globulin Ratio 1.0 (1-2) Influenza Type A RNA (NEGATIVE) Influenza Type B RNA (NEGATIVE) SARS-CoV-2 RNA (SHAZIA) (NEGATIVE) 05/04/21 05/04/21 05/05/21 Range/Units 13:43 15:45 04:53 WBC 8.96 (4.23-9.07) K/mm3 RBC 4.89 (4.63-6.08) M/mm3 Hgb 15.0 (13.7-17.5) gm/dl Hct 45.8 (40.1-51.0) % MCV 93.7 H (79.0-92.2) fl MCH 30.7 (25.7-32.2) pg MCHC 32.8 (32.2-35.5) g/dl RDW Std Deviation 46.0 H (35.1-43.9) fL Plt Count 263 (163-337) K/mm3 MPV 9.8 (9.4-12.3) fl Neut % (Auto) 66.9 (34.0-67.9) % Lymph % (Auto) 19.5 L (21.8-53.1) % [place] % (Auto) 10.3 (5.3-12.2) % Eos % (Auto) 2.6 (0.8-7.0) Baso % (Auto) 0.6 (0.1-1.2) % Neut # (Auto) 6.00 H (1.78-5.38) K/mm3 Lymph # (Auto) 1.75 (1.32-3.57) K/mm3 [place] # (Auto) 0.92 H (0.30-0.82) K/mm3 Eos # (Auto) 0.23 (0.04-0.54) K/mm3 Baso # (Auto) 0.05 (0.01-0.08) K/mm3 PT (9.7-12.0) SECONDS INR APTT (21.7-31.4) SECONDS D-Dimer, Quantitative (0.19-0.50) mg/L Sodium (136-145) mEq/L Potassium (3.5-5.1) mEq/L Chloride (98-107) mEq/L Carbon Dioxide (21-32) mEq/L Anion Gap (5-15) BUN (7-18) mg/dL Creatinine (0.7-1.3) mg/dL Est Cr Clr Drug Dosing mL/min Estimated GFR (MDRD) (>60) mL/min BUN/Creatinine Ratio (14-18) Glucose (70-99) mg/dL Calcium (8.5-10.1) mg/dL Magnesium (1.8-2.4) mg/dL Total Bilirubin (0.2-1.0) mg/dL AST (15-37) U/L ALT (16-63) U/L Alkaline Phosphatase (46-116) U/L Troponin I (0.00-0.056) ng/mL NT-Pro-B Natriuret Pep 13898 H (0-125) pg/mL Total Protein (6.4-8.2) g/dl Albumin (3.4-5.0) g/dl Globulin gm/dL Albumin/Globulin Ratio (1-2) Influenza Type A RNA Negative (NEGATIVE) Influenza Type B RNA Negative (NEGATIVE) SARS-CoV-2 RNA (SHAZIA) Negative (NEGATIVE) 05/05/21 Range/Units 04:53 WBC (4.23-9.07) K/mm3 RBC (4.63-6.08) M/mm3 Hgb (13.7-17.5) gm/dl Hct (40.1-51.0) % MCV (79.0-92.2) fl MCH (25.7-32.2) pg MCHC (32.2-35.5) g/dl RDW Std Deviation (35.1-43.9) fL Plt Count (163-337) K/mm3 MPV (9.4-12.3) fl Neut % (Auto) (34.0-67.9) % Lymph % (Auto) (21.8-53.1) % [place] % (Auto) (5.3-12.2) % Eos % (Auto) (0.8-7.0) Baso % (Auto) (0.1-1.2) % Neut # (Auto) (1.78-5.38) K/mm3 Lymph # (Auto) (1.32-3.57) K/mm3 [place] # (Auto) (0.30-0.82) K/mm3 Eos # (Auto) (0.04-0.54) K/mm3 Baso # (Auto) (0.01-0.08) K/mm3 PT (9.7-12.0) SECONDS INR APTT (21.7-31.4) SECONDS D-Dimer, Quantitative (0.19-0.50) mg/L Sodium 144 (136-145) mEq/L Potassium 3.6 (3.5-5.1) mEq/L Chloride 107 (98-107) mEq/L Carbon Dioxide 26 (21-32) mEq/L Anion Gap 14.6 (5-15) BUN 22 H (7-18) mg/dL Creatinine 1.8 H (0.7-1.3) mg/dL Est Cr Clr Drug Dosing 41.83 mL/min Estimated GFR (MDRD) 38 (>60) mL/min BUN/Creatinine Ratio 12.2 L (14-18) Glucose 123 H (70-99) mg/dL Calcium 8.6 (8.5-10.1) mg/dL Magnesium (1.8-2.4) mg/dL Total Bilirubin (0.2-1.0) mg/dL AST (15-37) U/L ALT (16-63) U/L Alkaline Phosphatase (46-116) U/L Troponin I 0.064 H* (0.00-0.056) ng/mL NT-Pro-B Natriuret Pep (0-125) pg/mL Total Protein (6.4-8.2) g/dl Albumin (3.4-5.0) g/dl Globulin gm/dL Albumin/Globulin Ratio (1-2) Influenza Type A RNA (NEGATIVE) Influenza Type B RNA (NEGATIVE) SARS-CoV-2 RNA (SHAZIA) (NEGATIVE) Med Orders - Current: Current Medications Acetaminophen (Acetaminophen 325 Mg Tab) 650 mg PO Q4H PRN PRN Reason: Pain (Mild 1-3)/fever Amlodipine Besylate (Amlodipine 5 Mg Tab) 5 mg PO DAILY [facility] Last Admin: 05/05/21 08:00 Dose: Not Given Documented by: Docusate Sodium (Docusate Sodium 100 Mg Cap) 100 mg PO BID PRN PRN Reason: Constipation Furosemide (Furosemide 40 Mg/4 Ml Vial) 40 mg IVPUSH BIDDIURETIC [facility] Last Admin: 05/05/21 06:39 Dose: 40 mg Documented by: Hydralazine HCl (Hydralazine 20 Mg/Ml Sdv) 10 mg IVPUSH Q4H PRN PRN Reason: Hypertension Metoprolol Tartrate (Metoprolol Tartrate 25 Mg Tab) 25 mg PO Q12H [facility] Last Admin: 05/05/21 03:24 Dose: 25 mg Documented by: Miscellaneous Information (Remove/Replace Nicotine Patch) 1 ea TRDERM DAILY [facility] Last Admin: 05/05/21 08:00 Dose: Not Given Documented by: Nicotine (Nicotine 21 Mg/24 Hr Patch) 21 mg TRDERM DAILY [facility] Last Admin: 05/05/21 08:00 Dose: Not Given Documented by: Ondansetron HCl (Ondansetron 4 Mg Tab.Dis) 4 mg PO Q4H PRN PRN Reason: nausea, able to take PO Ondansetron HCl (Ondansetron 4 Mg/2 Ml Sdv) 4 mg IV Q4H PRN PRN Reason: Nausea/Vomiting Polyethylene Glycol (Polyethylene Glycol 3350 Powder 17 Gm Packet) 17 gm PO DAILY PRN PRN Reason: Constipation Rivaroxaban (Rivaroxaban 15 Mg Tab) [address] Last Admin: 05/04/21 17:40 Dose: 15 mg Documented by: Sodium Chloride (Sodium Chloride 0.9% 10 Ml Syringe) 10 ml FLUSH ASDIRECTED PRN PRN Reason: Keep Vein Open Discontinued Medications Aspirin (Aspirin 81 Mg Tab.Chew) 324 mg PO ONETIME ONE Stop: 05/04/21 14:36 Last Admin: 05/04/21 15:00 Dose: 324 mg Documented by: Sodium Chloride (Sodium Chloride 0.9% 10 Ml Syringe) 10 ml FLUSH ASDIRECTED PRN PRN Reason: Keep Vein Open Last Admin: 05/04/21 13:43 Dose: 10 ml Documented by: - Exam Quality Assessment: Reports: DVT Prophylaxis. Denies: Supplemental Oxygen General: Reports: Alert, No Acute Distress Neck: Reports: Supple. Denies: Lymphadenopathy Lungs: Reports: Clear to Auscultation, Decreased Breath Sounds Cardiovascular: Reports: Irregular Rhythm (Rate controlled atrial flutter) GI/Abdominal Exam: Normal Bowel Sounds, Soft, Non-Tender, No Organomegaly Extremities: Normal Inspection, No Pedal Edema Skin: Reports: Warm, Dry, Intact Neurological: Reports: No New Focal Deficit
== END 2021-05-05 09:11 | disposition home or self-care (01) | DRG 309 ==
LOC: JD.ED 13:32 → JD.MS 15:58
PROVIDERS: ADMIT Hospitalist; ATTEND Hospitalist
DX: I50.9 Heart failure, unspecified (principal); I48.92 Unspecified atrial flutter; I13.0 Hypertensive heart and chronic kidney disease with heart failure and stage 1 through stage 4 chronic kidney disease, or unspecified chronic kidney disease; I50.32 Chronic diastolic (congestive) heart failure; N18.30 Chronic kidney disease, stage 3 unspecified; F17.210 Nicotine dependence, cigarettes, uncomplicated; R91.8 Other nonspecific abnormal finding of lung field; Z66 Do not resuscitate; Z20.822 Contact with and (suspected) exposure to COVID-19
CPT/HCPCS: 0240U; 36415; 71045; 71250; 80048; 80053; 83735; 83880; 84484; 85025; 85379; 85610; 85730; 93005; 93306; 93010; 99223; 99239; 99284; 99285-25; A9270-GY; J1940

== ENCOUNTER 2022-05-16 16:19 | Emergency (ER) | payer MEDICARE, OTHER ==
[2022-05-16] MEDS ORDERED: Sodium Chloride 0.9% 10 ML Syringe FLUSH PRN (16:23)
[2022-05-16] MEDS ORDERED: Furosemide 40 MG/4 ML VIAL IVPUSH ONE (17:15)
== END 2022-05-16 18:58 | disposition home or self-care (01) ==
LOC: JD.ED 16:19
DX: I50.9 Heart failure, unspecified (principal); I10 Essential (primary) hypertension; F17.210 Nicotine dependence, cigarettes, uncomplicated; Z79.899 Other long term (current) drug therapy
CPT/HCPCS: 36415; 71045; 80053; 83690; 83735; 83880; 84484; 85025; 85379; 85610; 85730; 93005; 96374; 99285; J1940; J3490; 93010; 99284